=== PATIENT | male | born 1950 | race Hispanic/Latino ===

== ENCOUNTER 2018-07-07 08:40 | Day surgery (SDC) | payer MEDICARE, BC ==
[2018-07-07 10:43] VITALS: TEMP 98.2
[2018-07-07] MEDS ORDERED: Propofol 10 mg/ml Inj (20 ML) ONE (11:00)
[2018-07-07] MEDS ORDERED: Midazolam 2 MG/2 ML VIAL ONE (11:00)
[2018-07-07] MEDS ORDERED: Sodium Chloride 0.9% 1,000 ML IV SCH (11:45)
[2018-07-07 12:19] VITALS: O2SAT 100
[2018-07-07 12:32] VITALS: RESP 16
[2018-07-07 13:26] VITALS: PULSE 66
[2018-07-07 13:32] VITALS: BP 127/72
== END 2018-07-07 13:20 | disposition home or self-care (01) ==
LOC: ENDO 08:40
PROVIDERS: ATTEND Specialist
DX: Z12.11 Encounter for screening for malignant neoplasm of colon (principal); K57.30 Diverticulosis of large intestine without perforation or abscess without bleeding; K64.8 Other hemorrhoids
CPT/HCPCS: 45378; J2001; J2250; J2704; J7030; J7040